=== PATIENT | female | born 1955 | race Caucasian/White ===

== ENCOUNTER 2024-10-20 06:00 | Day surgery (SDC) | payer OTHER ==
[~2024-10-20 06:00] MED LIST: ALPRAZOLAM2 M1 PO; CELEBREX200MG PO; GABAPENTIN300 M2 PO; OMEPRAZOLE20 MG PO; PEPCID AC20 MG PO; ROSUVASTATIN CA20 MG PO; SYNTHROID88 MCG PO; TRAZODONE HCL50 MG PO; ZESTRIL5 MG PO; ZYRTEC10 M3 PO
[2024-10-20 06:56] LABS: INR 1.02; PARTIAL THROMBOPLASTIN TIME 31.6 SECONDS (22.0-34.0); PROTHROMBIN TIME 11.1 SECONDS (9.0-11.5)
[2024-10-20] MEDS ORDERED: CEFAZOLIN SODIUM 1,000 MG VIAL IV ONE (09:45)
[2024-10-20] MEDS ORDERED: VANCOMYCIN HCL 1,000 MG VIAL IR ONE (09:45)
[2024-10-20] MEDS ORDERED: TRAM1TAB98 PO (10:16)
[2024-10-20] MEDS ORDERED: MACROBID 100 M100 MG PO (10:16)
== END 2024-10-20 12:40 | disposition home or self-care (01) ==
LOC: CIR.AMB 06:00
PROVIDERS: ATTEND Obstetrics & Gynecology Gynecology
DX: N81.11 Cystocele, midline (principal); Z88.8 Allergy status to other drugs, medicaments and biological substances